=== PATIENT | female | born 1955 | race Caucasian/White ===

== ENCOUNTER → 2021-09-05 09:00 | Outpatient (BNVA) | payer MEDICARE, MEDICAID, SELFPAY | PROVIDERS: PCP Internal Medicine; Visit Provider Nurse Practitioner Family | DX: G25.5 Other chorea (principal); F41.1 Generalized anxiety disorder; W19.XXXA Unspecified fall, initial encounter | CPT/HCPCS: 99212 ==

== ENCOUNTER → 2021-11-05 09:20 | Outpatient (BNVA) | payer MEDICARE, MEDICAID, SELFPAY | PROVIDERS: PCP Internal Medicine; Visit Provider Nurse Practitioner Family | DX: G25.5 Other chorea (principal); F41.1 Generalized anxiety disorder | CPT/HCPCS: 99212 ==

== ENCOUNTER → 2022-02-07 09:56 | Outpatient (BNVA) | payer MEDICARE, MEDICAID, SELFPAY | PROVIDERS: PCP Internal Medicine; Visit Provider Nurse Practitioner Family | DX: G25.5 Other chorea (principal); F41.1 Generalized anxiety disorder | CPT/HCPCS: 99212 ==

== ENCOUNTER → 2022-07-01 10:48 | Outpatient (BNVA) | payer MEDICARE, MEDICAID, SELFPAY | PROVIDERS: PCP Internal Medicine; Visit Provider Nurse Practitioner Family | DX: G25.5 Other chorea (principal); F41.1 Generalized anxiety disorder; Z79.899 Other long term (current) drug therapy; Z91.81 History of falling | CPT/HCPCS: 99212 ==

== ENCOUNTER 2022-12-23 11:05 | Outpatient (AMB) | payer MEDICARE, MEDICAID, SELFPAY ==
[2022-12-23 11:06] VITALS: PULSE 79; O2SAT 98; BMI 24.8
--- NOTE | 2022-12-23 11:06 | A.OFFVIS_ITS ---
Intake Vital Signs 12/23/22 11:06 Height 5 ft Weight 127 lb 4 oz BMI 24.8 Position Sitting Pulse 79 Pulse Source Pulse Oximeter Pulse Oximetry (%) 98 Oxygen Delivery Method Room Air Intake Visit Reasons: 6m follow up Intake Note: Pt presents as a 6 month f/u. Pt states I still walk to the left but it's getting better because I go to PT. Pt also states she's Still having tremors and vibration and she gets stiff in the legs. Pt also has a problem reaching up which pt is also working on. 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 Accompanied by: Sister Allergies acetaminophen [From Vicodin] Allergy (Intermediate, Verified 12/23/22 11:11) rash and hives hydrocodone [From Vicodin] Allergy (Intermediate, Verified 12/23/22 11:11) rash and hives amoxicillin Allergy (Mild, Verified 12/23/22 11:11) rash NSAIDS (Non-Steroidal Anti-Inflamma Allergy (Mild, Verified 12/23/22 11:11) stomach ache aspirin Allergy (Verified 12/23/22 11:11) stomach upset Medication List - Last Reconciled 12/23/22 by ROBERTO CARLOS Pickering albuterol sulfate 90 mcg/actuation 1 inh inhalation QID amlodipine 10 mg PO DAILY blood sugar diagnostic (FreeStyle Lite Strips) As directed clonazepam 1 mg PO BEDTIME 90 days clopidogrel 75 mg PO DAILY famotidine 40 mg PO BID fluticasone propionate 100 mcg/actuation 1 inh inhalation BID lancets (FreeStyle Lancets) As directed lorazepam 0.5 mg PO BID PRN 30 days losartan 100 mg PO DAILY metformin 2,000 mg PO BID metoprolol succinate ER 25 mg PO DAILY montelukast 10 mg PO BEDTIME pravastatin 40 mg PO BEDTIME raloxifene 60 mg PO DAILY HPI HPI Comments History of Present Illness Details 67-yr-old female presents for f/u visit. Pt is accompanied by her sister. Pt denies any significant interval medical history changes. After the last visit, pt underwent DaTscan, which was normal. Pt and sister are wondering if pt could have PSP. Pt reports she is working w/ a local neuro-PT, feels that her gait is better. Tremor is stable. Can feel lightheaded if looking up to say grab her clothes. She seems more anxious- using her prn lorazepam prior to all appointments, including PT, and even some family functions if there are going to be more people around. She is wondering is she is taking too much lorazepam- she is taking clonazepam qhs. She also recently underwent aUE EMG/NCS- which showed BUE L > R carpal tunnel syndrome- pt previously had right carpal tunnel repair. [facility] Medical History Diabetes GERD (gastroesophageal reflux disease) HLD (hyperlipidemia) HTN (hypertension) Seizure in childhood Surgical History History of surgery on right wrist Family History Mother No problems noted. Father Lung cancer Social History (Updated 12/23/22 @ 11:12 by Aydee Davila CMA) Household Members: None Alcohol intake: never Patient Tobacco Use Status: Never used Tobacco Review of Systems Const All systems reviewed & are unremarkable except as noted in HPI and below Physical Exam Vital Signs: Last Vital Signs Pulse 79 12/23/22 11:06 Pulse Ox 98 12/23/22 11:06 Oxygen Delivery Method Room Air 12/23/22 11:06 BMI result Body Mass Index 24.8 Const General: cooperative and no acute distress Resp Effort & Inspection: normal respiratory effort and able to speak in complete sentences Neuro Other: Mild BUE postural tremor. Mild BUE finger posturing and chorea. Stands slowly, short steps, steady gait. General: patient oriented x3 and CN's II-XI intact bilaterally (w/ exception of dysconjugate gaze). 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 Negative for Kenton's Code(s): G25.5 - Other chorea (4) Gait difficulty: Code(s): R26.9 - Unspecified abnormalities of gait and mobility (5) Falls: Code(s): W19.XXXA - Unspecified fall, initial encounter Plan Reviewed DaTscan normal. Discussed that DaTscan would assess for PSP as well. Reviewed that pt does have many symptoms c/w movement disorder (chorea, tremor, gait changes, etc) even though the DaTscan was negative. She has previously tested negative for Kenton's. Dr Kauffman previously felt that pt's chorea s/s were likely secondary to a childhood illness resulting in seizures and need to be tx'd w/ phenobarbital. We will continue to monitor pt, as newer diagnostic testing becomes clinically available we will consider further testing. Offered trial of SSRI however pt is hesitant to try new medications. Continue scheduled clonazepam 1mg qhs. Continue ativan 0.5mg bid prn panic attack. Will refer pt for psychotherapy- pt agrees, Continue PT exercises and walking. Pt previously advised to discuss w/ her civil engineer's aide what degree of vision loss she has- as if she is considered legally blind she may be eligible for services for the blind. f/u in 4-5 months or sooner prn Orders: Referrals 2 Psychology Referral F41.1 - Generalized anxiety disorder, G25.5 - Other chorea, R25.1 - Tremor, unspecified, R26.9 - Unspecified abnormalities of gait and mobility, W19.XXXA - Unspecified fall, initial encounter Coding Level of Care Code Est Pt Level 4 (94696) Diagnoses Generalized anxiety disorder F41.1 Tremor R25.1 Chorea G25.5 Gait difficulty R26.9 Falls W19.XXXA
== END 2022-12-23 12:01 | disposition home or self-care (01) ==
PROVIDERS: Visit Provider Nurse Practitioner Family
DX: F41.1 Generalized anxiety disorder (principal); G25.5 Other chorea; R26.9 Unspecified abnormalities of gait and mobility
CPT/HCPCS: 99214

== ENCOUNTER → 2022-12-23 11:05 | Outpatient (BNVA) | payer MEDICARE, MEDICAID, SELFPAY | PROVIDERS: Visit Provider Nurse Practitioner Family | DX: G25.5 Other chorea (principal); F41.1 Generalized anxiety disorder; R26.9 Unspecified abnormalities of gait and mobility | CPT/HCPCS: 99212 ==

== ENCOUNTER 2023-04-28 09:33 | Outpatient (AMB) | payer MEDICARE, SELFPAY ==
--- NOTE | 2023-04-28 09:34 | MHC.OFFVIS ---
Intake Vital Signs 04/28/23 09:36 Height 5 ft Weight 132 lb BMI 25.8 BP 138/82 Blood Pressure Location Rt brachial Position Sitting Pulse 62 Pulse Source Pulse Oximeter Pulse Oximetry (%) 98 Oxygen Delivery Method Room Air Intake Visit Reasons: 4m follow up tremors-Confirmed Intake Note: Patient presents for 4 month follow up. Allergies acetaminophen [From Vicodin] Allergy (Intermediate, Verified 04/28/23 09:36) rash and hives hydrocodone [From Vicodin] Allergy (Intermediate, Verified 04/28/23 09:36) rash and hives amoxicillin Allergy (Mild, Verified 04/28/23 09:36) rash NSAIDS (Non-Steroidal Anti-Inflamma Allergy (Mild, Verified 04/28/23 09:36) stomach ache aspirin Allergy (Verified 04/28/23 09:36) stomach upset Medication List - Last Reconciled 04/28/23 by ROBERTO CARLOS Pickering albuterol sulfate 90 mcg/actuation 1 inh inhalation QID amlodipine 10 mg PO DAILY blood sugar diagnostic (FreeStyle Lite Strips) As directed clonazepam 1 mg PO BEDTIME 90 days clopidogrel 75 mg PO DAILY famotidine 40 mg PO BID fluticasone propionate 100 mcg/actuation 1 inh inhalation BID lancets (FreeStyle Lancets) As directed lorazepam 0.5 mg PO BID PRN 30 days losartan 100 mg PO DAILY metformin 2,000 mg PO BID metoprolol succinate ER 25 mg PO DAILY montelukast 10 mg PO BEDTIME pravastatin 40 mg PO BEDTIME raloxifene 60 mg PO DAILY HPI HPI Comments History of Present Illness Details 67-yr-old female presents for f/u visit. Pt is currently being tx'd w/ a course of ABT for strep throat. She states she feels a little run down, still has a tickle in her throat, and waking up congested. Plans to f/u w/ her PCP after she completes [facility] PCN course. She also notes increased Left wrist/hand aching pain and hand becoming stuck, especially when holding her phone for extended times or carrying a heavier pot. Reports that she underwent EMG/NCS which showed left carpal tunnel syndrome. Has a wrist splint, but Dr Muller has suggested some other hand splints- she plans to f/u w/ him to discuss these. She plans to try a phone prop. She states that rheumatology did consider treating her arthritis, but they decided to hold on this for now. She is hoping to avoid CTS surgery of possible (did have previously on Right). Pt reports she has good and bad days with tremor. She can still sometimes still feel like she is being pulled to the side when walking. She denies any falls- notes her family is very mindful to prevent her from falling. Mood is stable- although again a bit under the weather now. [facility] Medical History Diabetes GERD (gastroesophageal reflux disease) HLD (hyperlipidemia) HTN (hypertension) Seizure in childhood Surgical History History of surgery on right wrist Family History Mother No problems noted. Father Lung cancer (Updated 12/23/22 @ 11:12 by Aydee Davila CMA) Household Members: None Alcohol intake: never Patient Tobacco Use Status: Never used Tobacco Physical Exam Vital Signs: Last Vital Signs Pulse 62 04/28/23 09:36 BP 138/82 04/28/23 09:36 Pulse Ox 98 04/28/23 09:36 Oxygen Delivery Method Room Air 04/28/23 09:36 BMI result Body Mass Index 25.8 Const General: cooperative and no acute distress Resp Effort & Inspection: normal respiratory effort and able to speak in complete sentences Neuro Other: A&O x's 3 Mild BUE postural tremor. Mild BUE finger posturing and chorea. FFM- decreased on left. BUE tone, more so on left. Positive LUE Tinnel, Phalen, medial compression tests. Stands slowly, short steps, steady gait. Assessment & Plan Assessment & Plan (1) Tremor: Comment: Kalen scan scan- negative. Code(s): R25.1 - Tremor, unspecified (2) Chorea: Comment: Sequelae of childhood illness. Negative for Robeson's Code(s): G25.5 - Other chorea (3) Gait difficulty: Code(s): R26.9 - Unspecified abnormalities of gait and mobility (4) Generalized anxiety disorder: Comment: with panic attack Code(s): F41.1 - Generalized anxiety disorder (5) Left wrist pain: Code(s): M25.532 - Pain in left wrist Plan Continue scheduled clonazepam 1mg qhs. Continue ativan 0.5mg bid prn panic attack. Pt previously referred for psychotherapy. Left wrist pain- f/u w/ Dr Muller at [facility]. Discussed it is possible there is both CTS and rigidity s/s- will monitor- future consideration dopaminergic trial. Increase doing PT exercises and walking. f/u in 4-5 months or sooner prn Coding Level of Care Code Est Pt Level 4 (20742) Diagnoses Tremor R25.1 Chorea G25.5 Gait difficulty R26.9 Generalized anxiety disorder F41.1 Left wrist pain M25.532
[2023-04-28 09:36] VITALS: BP 138/82; PULSE 62; O2SAT 98; BMI 25.8
== END 2023-04-28 10:20 | disposition home or self-care (01) ==
PROVIDERS: PCP Internal Medicine; Visit Provider Nurse Practitioner Family
DX: G25.5 Other chorea (principal); R26.9 Unspecified abnormalities of gait and mobility; F41.1 Generalized anxiety disorder; M25.532 Pain in left wrist
CPT/HCPCS: 99214

== ENCOUNTER → 2023-04-28 09:33 | Outpatient (BNVA) | payer MEDICARE, SELFPAY | PROVIDERS: PCP Internal Medicine; Visit Provider Nurse Practitioner Family | DX: R25.1 Tremor, unspecified (principal); R26.9 Unspecified abnormalities of gait and mobility; G25.5 Other chorea; F41.1 Generalized anxiety disorder; M25.532 Pain in left wrist | CPT/HCPCS: 99212 ==

== ENCOUNTER 2023-12-26 09:31 | Outpatient (AMB) | payer MEDICARE, SELFPAY ==
--- NOTE | 2023-12-26 09:31 | A.OFFVIS_ITS ---
Vital Signs 12/26/23 09:32 Height 5 ft Weight 136 lb BMI 26.6 BP 110/74 Blood Pressure Location Rt brachial Position Sitting Pulse 80 Pulse Source Pulse Oximeter Pulse Oximetry (%) 96 Oxygen Delivery Method Room Air Intake Visit Reasons: 4 mo f/u - Tremors-CONF Intake Note: Patient presents for 4 month tremors patient doing pretty good no issues or concerns Allergies acetaminophen [From Vicodin] Allergy (Intermediate, Verified 12/26/23 09:34) rash and hives hydrocodone [From Vicodin] Allergy (Intermediate, Verified 12/26/23 09:34) rash and hives amoxicillin Allergy (Mild, Verified 12/26/23 09:34) rash NSAIDS (Non-Steroidal Anti-Inflamma Allergy (Mild, Verified 12/26/23 09:34) stomach ache aspirin Allergy (Verified 12/26/23 09:34) stomach upset HPI Comments Details: 68-yr-old female presents for f/u visit of chorea. Pt reports she has been doing well overall. Her choreatic movements are stable. She is still having aching LUE pain and tingling in the 2nd-4th fingers. Saw Dr Muller- states was given a hand splint which helped some. She Thinks she may have had aLUE EMG/NCS- but not sure, States Dr Muller did not think she has CTS. She did have an episode last week, of feeling like her foot was frozen. Thinks she was walking a bit too quickly. She was able to do a leg tap, which was helpful. She is going to the [facility] next week. She notes she can walk the beach sometimes, depends on how her leg is doing. She is trying to walk regularly. Tries to work earlier in the day to avoid the summer heat. Her friends and family often walk w/ her- they help to guide her to avoid trip hazards. She is trying to manage anxiety provoking situations- for instance has not flown to [place] in a few years. Her sisters help her with food shopping- or ordering groceries online via [employer] She has started to play games on her cell phone. Using Lorazepam prn- anxiety. Using Clonazepam qhs. [facility] Medical History Diabetes GERD (gastroesophageal reflux disease) HLD (hyperlipidemia) HTN (hypertension) Seizure in childhood Surgical History History of surgery on right wrist Family History Mother No problems noted. Father Lung cancer Social History Household Members: None Alcohol intake: never Patient Tobacco Use Status: Never used Tobacco Review of Systems Const All systems reviewed & are unremarkable except as noted in HPI and below Physical Exam Vital Signs: Last Vital Signs Pulse 80 12/26/23 09:32 BP 110/74 12/26/23 09:32 Pulse Ox 96 12/26/23 09:32 Oxygen Delivery Method Room Air 12/26/23 09:32 BMI result Body Mass Index 26.6 Const General: cooperative and no acute distress Resp Effort & Inspection: normal respiratory effort and able to speak in complete sentences Neuro Other: A&O x's 3 Impaired vision. Mild jaw movements Mild BUE postural tremor. Mild BUE finger posturing and chorea. FFM- decreased on left. BUE tone, more so on left. Positive LUE Tinnel, Phalen, medial compression tests. Stands slowly, short steps, steady gait. Pleasant affect Assessment & Plan Assessment & Plan (1) Tremor: Comment: Kalen scan scan- negative. 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 Negative for Grant's Code(s): G25.5 - Other chorea Category: Medical (4) Left wrist pain: Code(s): M25.532 - Pain in left wrist Category: Medical (5) Gait difficulty: Code(s): R26.9 - Unspecified abnormalities of gait and mobility Category: Medical Plan Continue scheduled clonazepam 1mg qhs. Continue ativan 0.5mg bid prn panic attack. Pt previously referred for psychotherapy. Left wrist pain- f/u w/ Dr Muller at [facility]. Discussed it is possible there is both CTS and rigidity s/s- will monitor- future consideration dopaminergic trial. Continue increased PT exercises and walking. Encouraged pt to continue cognitively stimulating activities- playing games on her phone, trying audiobooks. f/u in 6 months or sooner prn Coding Level of Care Code Est Pt Level 4 (12545) Diagnoses Tremor R25.1 Generalized anxiety disorder F41.1 Chorea G25.5 Left wrist pain M25.532 Gait difficulty R26.9
[2023-12-26 09:32] VITALS: BP 110/74; PULSE 80; O2SAT 96; BMI 26.6
== END 2023-12-26 10:26 | disposition home or self-care (01) ==
PROVIDERS: PCP Internal Medicine; Visit Provider Nurse Practitioner Family
DX: R25.1 Tremor, unspecified (principal); G25.5 Other chorea; F41.1 Generalized anxiety disorder; M25.532 Pain in left wrist; R26.9 Unspecified abnormalities of gait and mobility
CPT/HCPCS: 99214

== ENCOUNTER → 2023-12-26 09:31 | Outpatient (BNVA) | payer MEDICARE, SELFPAY | PROVIDERS: PCP Internal Medicine; Visit Provider Nurse Practitioner Family | DX: R25.1 Tremor, unspecified (principal); M25.532 Pain in left wrist; R26.9 Unspecified abnormalities of gait and mobility; F41.1 Generalized anxiety disorder | CPT/HCPCS: 99212 ==

== ENCOUNTER 2024-07-16 11:24 | Outpatient (AMB) | payer MEDICARE, SELFPAY ==
--- NOTE | 2024-07-16 11:25 | A.OFFVIS_ITS ---
Vital Signs 07/16/24 11:30 Height 5 ft Weight 134 lb BMI 26.2 BP 120/68 Blood Pressure Location Lt brachial Position Sitting Pulse 89 Pulse Source Pulse Oximeter Pulse Oximetry (%) 89 L Oxygen Delivery Method Room Air Intake Visit Reasons: Follow Up Manager Mining Required: No Accompanied by: Self / Same As Patient Allergies acetaminophen [From Vicodin] Allergy (Intermediate, Verified 07/16/24 11:28) rash and hives hydrocodone [From Vicodin] Allergy (Intermediate, Verified 07/16/24 11:28) rash and hives amoxicillin Allergy (Mild, Verified 07/16/24 11:28) rash NSAIDS (Non-Steroidal Anti-Inflamma Allergy (Mild, Verified 07/16/24 11:28) stomach ache aspirin Allergy (Verified 07/16/24 11:28) stomach upset Medication List - Last Reconciled 07/16/24 by ROBERTO CARLOS Pickering albuterol sulfate 90 mcg/actuation 1 inh inhalation QID amlodipine 10 mg PO DAILY blood sugar diagnostic (FreeStyle Lite Strips) As directed clonazepam 1 mg PO BEDTIME 90 days clopidogrel 75 mg PO DAILY famotidine 40 mg PO BID fluticasone propionate 100 mcg/actuation 1 inh inhalation BID lancets (FreeStyle Lancets) As directed lorazepam 0.5 mg PO BID PRN 30 days losartan 100 mg PO DAILY metformin 2,000 mg PO BID metoprolol succinate ER 25 mg PO DAILY montelukast 10 mg PO BEDTIME pravastatin 40 mg PO BEDTIME raloxifene 60 mg PO DAILY HPI Comments Details: 69-yr-old female presents for f/u visit of chorea. Pt reports she has been doing well overall. Her choreatic movements are stable. Her tremors are stable. She states her legs still do not always listen to her brain. Her legs can feel like jello if standing too long- say at a buffet. She may have leg freezing, but taps her leg/hip, which helps. She reports she fell a week prior to - she tried to pickler helper something from behind the [employer] tree, and became off balanced and fell forward. She had no injuries, but she had some residual aches and pains. Since, she has started to use a grabber. She is still walking regularly, however will avoid taking outside walks on days she feels more off-balance. She tried a bootcamp class with her sisters at the [facility]- but pt felt too off balance so went back to just walking and doing her foot peddler. Her family is still supportive- helps with shopping etc. Pt has wondered about retrying PT. Using Clonazepam qhs. Using Lorazepam prn- anxiety- but less often. She plans to follow-up with [facility], DR Muller, for right shoulder pain and left thumb plan and intermittent Raman knee pains. Using Tylenol prn. She underwent left carpal tunnel repair. She is still doing some hand exercises. [facility] Medical History Diabetes GERD (gastroesophageal reflux disease) HLD (hyperlipidemia) HTN (hypertension) Seizure in childhood Surgical History History of surgery on right wrist Family History Mother No problems noted. Father Lung cancer Social History Household Members: None Alcohol intake: never Patient Tobacco Use Status: Never used Tobacco Physical Exam Vital Signs: Last Vital Signs Pulse 89 07/16/24 11:30 BP 120/68 07/16/24 11:30 Pulse Ox 89 L 07/16/24 11:30 Oxygen Delivery Method Room Air 07/16/24 11:30 BMI result Body Mass Index 26.2 Const General: cooperative and no acute distress Resp Effort & Inspection: normal respiratory effort and able to speak in complete sentences Neuro Other: A&O x's 3 Impaired vision. Mild jaw movements Mild BUE postural tremor. Mild BUE finger posturing and chorea. FFM- decreased on left. BUE tone, more so on left. Stands slowly, short steps, steady gait. Pleasant affect Assessment & Plan Assessment & Plan (1) Tremor: Comment: Kalen scan scan- negative. 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 Negative for Kenton's Code(s): G25.5 - Other chorea Category: Medical (4) Gait difficulty: Code(s): R26.9 - Unspecified abnormalities of gait and mobility Category: Medical Plan Continue scheduled clonazepam 1mg qhs. Continue ativan 0.5mg bid prn panic attack. Pt previously referred for psychotherapy. Continue home exercises and walking. Discussed doing follow-up PT and then starting a movement disorder exercise class (such as the PD exercise classes at the local [facility]- however reassuring patient that she does not have PD) Continue cognitively stimulating activities- playing games on her phone. Suggested patient consider resources for the Blind, however patient states she has not been diagnosed is legally blind. f/u in 6 months or sooner prn Medications: Refilled clonazepam 1 mg PO BEDTIME 90 days 90 tabs 1RF Coding Level of Care Code Est Pt Level 4 (57462) Diagnoses Tremor R25.1 Generalized anxiety disorder F41.1 Chorea G25.5 Gait difficulty R26.9
[2024-07-16 11:30] VITALS: BP 120/68; PULSE 89; O2SAT 89; BMI 26.2
== END 2024-07-16 12:27 | disposition home or self-care (01) ==
PROVIDERS: PCP Student in an Organized Health Care Education/Training Program; Visit Provider Nurse Practitioner Family
DX: F41.1 Generalized anxiety disorder (principal); G25.5 Other chorea; R26.9 Unspecified abnormalities of gait and mobility; R25.1 Tremor, unspecified
CPT/HCPCS: 99214

== ENCOUNTER → 2024-07-16 11:24 | Outpatient (BNVA) | payer MEDICARE, SELFPAY | PROVIDERS: PCP Student in an Organized Health Care Education/Training Program; Visit Provider Nurse Practitioner Family | DX: G25.5 Other chorea (principal); F41.1 Generalized anxiety disorder; R26.9 Unspecified abnormalities of gait and mobility | CPT/HCPCS: 99212 ==

== ENCOUNTER 2024-12-20 10:13 | Outpatient (AMB) | payer MEDICARE, SELFPAY ==
[2024-12-20 10:16] VITALS: BP 122/74; PULSE 71; O2SAT 99; BMI 25.6
--- NOTE | 2024-12-20 10:16 | A.OFFVIS_ITS ---
Vital Signs 12/20/24 10:16 Height 5 ft Weight 131 lb BMI 25.6 BP 122/74 Blood Pressure Location Rt brachial Position Sitting Pulse 71 Pulse Source Pulse Oximeter Pulse Oximetry (%) 99 Oxygen Delivery Method Room Air Intake Visit Reasons: 5 mnts f/u Science And Operations Officer Required: No Accompanied by: Sister Allergies acetaminophen (From Vicodin) Allergy (Intermediate, Verified 12/20/24 10:20) rash and hives hydrocodone (From Vicodin) Allergy (Intermediate, Verified 12/20/24 10:20) rash and hives amoxicillin Allergy (Mild, Verified 12/20/24 10:20) rash NSAIDS (Non-Steroidal Anti-Inflamma Allergy (Mild, Verified 12/20/24 10:20) stomach ache aspirin Allergy (Verified 12/20/24 10:20) stomach upset Medication List - Last Reconciled 12/20/24 by ROBERTO CARLOS Pickering albuterol sulfate 90 mcg/actuation 1 inh inhalation QID amlodipine 10 mg PO DAILY blood sugar diagnostic (FreeStyle Lite Strips) As directed clonazepam 1 mg PO BEDTIME 90 days clopidogrel 75 mg PO DAILY famotidine 40 mg PO BID fluticasone propionate 100 mcg/actuation 1 inh inhalation BID lancets (FreeStyle Lancets) As directed lorazepam 0.5 mg PO BID PRN 30 days losartan 100 mg PO DAILY metformin 2,000 mg PO BID metoprolol succinate ER 25 mg PO DAILY montelukast 10 mg PO BEDTIME pravastatin 40 mg PO BEDTIME raloxifene 60 mg PO DAILY HPI Comments Details: 69-yr-old female presents for f/u visit of chorea and anxiety. Patient is accompanied by her sister. Patient and her sister have questions regarding her formal diagnosis, beyond the chorea and anxiety diagnoses. They are working to ensure patient's insurance made her long-term means, near applying for Medicaid to supplement her Medicare. And considering adding Medicare D drug coverage. Her choreatic movements are stable. Her tremors have increased some. She had a recent night where she felt internal tremor all night, which prevented her from sleeping. Pt notes that she had had 2 vaccines the day before. Pt's sister notes there was also some stress r/t her above finances. Her sister notes that she can very easily become anxious over very small things. She states her legs still do not always listen to her brain. Her left leg can feel weak, may notice this even upon waking. She may have still leg freezing, but taps her leg/hip, which helps. She is still walking a few times a week- but will avoid walking if she feels off in the morning. Uses a foot peddler. Has a grabber. Her sister notes that she thinks her vision issues and depth perception difficulties, contributes to her gait difficulties. Pt denies diplopia. However, she does see blotches. Sometimes after standing and walking, she will feel off - pt states that she has attributed this to dehydration. She does also endorse a top of head headache pain , a/w lightheadedness, dizziness, sinus congestion. She was told this was d/t food- may overindulge in sweets and carbohydrates. She does state that her blood sugars have been increased recently. She attributes this to a recent trip to [place], where she purchased cookies and bagels- which she in just a few days. States generally she can go to [place] in 1-2 days. She is going to the beach next week with her family, which she is looking forward to but the trip in the preparation for the trip due exacerbate her anxiety. Her family is still supportive- helps with shopping etc. Using Clonazepam qhs. Using Lorazepam prn- anxiety- does not like how it makes her feel when it wears off, but it is helpful. She has been released from Dr Muller at [facility], DR Muller, but she plans to f/u w/ CEDRICK Solorio at [facility] for right shoulder pain and left thumb plan and intermittent Raman knee pains. Using Tylenol prn. [facility] Medical History Diabetes GERD (gastroesophageal reflux disease) HLD (hyperlipidemia) HTN (hypertension) Seizure in childhood Surgical History History of surgery on right wrist Family History Mother No problems noted. Father Lung cancer Social History Household Members: None Alcohol intake: never Patient Tobacco Use Status: Never used Tobacco Physical Exam Vital Signs: Last Vital Signs Pulse 71 12/20/24 10:16 BP 122/74 12/20/24 10:16 Pulse Ox 99 12/20/24 10:16 Oxygen Delivery Method Room Air 12/20/24 10:16 BMI result Body Mass Index 25.6 Const General: cooperative and no acute distress Resp Effort & Inspection: normal respiratory effort and able to speak in complete sentences Neuro Other: A&O x's 3 Impaired vision. Mild jaw movements Mild BUE postural tremor. Mild BUE finger posturing and chorea. FFM- decreased on left. BUE tone, more so on left. Stands slowly, short steps, steady gait. Pleasant affect Assessment & Plan Assessment & Plan (1) Tremor: Comment: Kalen scan scan- negative. 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 Negative for Moore's Code(s): G25.5 - Other chorea Category: Medical (4) Gait difficulty: Code(s): R26.9 - Unspecified abnormalities of gait and mobility Category: Medical Plan Continue scheduled clonazepam 1mg qhs. Continue ativan 0.5mg bid prn panic attack. We will again refer patient for in person psychotherapy preferably in [place], as patient relies on her family for transportation. Patient is in agreement. Stand slowly. Coverage patient to drink at least 64 oz of fluid per day including 1 serving of low sugar electrolyte replacement beverage per day Continue home exercises and walking- encourage patient to do these daily as able. Continue cognitively stimulating activities- playing games on her phone. Again suggested patient consider resources for the Blind, however patient states she has not been diagnosed is legally blind- patient's sister states they plan to follow-up with eye doctor to determine if she is in fact considered legally blind. Concur with efforts to ensure patient's insurance meets her medical needs. Advised it would need to contact Medicare in order to enroll in a Medicare part D prescription drug plan. Patient would likely benefit from seeing a community health educator again- will defer to PCP. Future considerations: Starting an SSRI, trialing headache prevention medication. f/u in 6 months or sooner prn Orders: Referrals Psychology Referral F41.1 - Generalized anxiety disorder Medications: Refilled clonazepam 1 mg PO BEDTIME 90 tabs 1RF 90 days Coding Level of Care Code Est Pt Level 4 (71962) Diagnoses Tremor R25.1 Generalized anxiety disorder F41.1 Chorea G25.5 Gait difficulty R26.9
== END 2024-12-20 11:33 | disposition home or self-care (01) ==
LOC: HO.HSMS 10:13
PROVIDERS: PCP Student in an Organized Health Care Education/Training Program; Visit Provider Nurse Practitioner Family
DX: R25.1 Tremor, unspecified (principal); G25.5 Other chorea; F41.1 Generalized anxiety disorder; R26.9 Unspecified abnormalities of gait and mobility
CPT/HCPCS: 99214

== ENCOUNTER → 2024-12-20 10:13 | Outpatient (BNVA) | payer MEDICARE, SELFPAY | PROVIDERS: PCP Student in an Organized Health Care Education/Training Program; Visit Provider Nurse Practitioner Family | DX: R26.9 Unspecified abnormalities of gait and mobility (principal); F41.1 Generalized anxiety disorder; R25.1 Tremor, unspecified; G25.5 Other chorea | CPT/HCPCS: 99212 ==